=== PATIENT | female | born 1955 | race African-American/Black ===

== ENCOUNTER 2019-12-13 15:24 | Emergency (ER) | payer MEDICAID, MEDICARE ==
[~2019-12-13] VITALS: Ht 165.1 cm; Wt 68.0 kg
[~2019-12-13 15:24] MED LIST: HYDR-1348
[2019-12-13 18:16] VITALS: BP 167/92
== END 2019-12-13 17:55 | disposition home or self-care (01) ==
LOC: ER 15:24
DX: I10 Essential (primary) hypertension (principal); D64.9 Anemia, unspecified; J45.909 Unspecified asthma, uncomplicated; I25.2 Old myocardial infarction; Z86.73 Personal history of transient ischemic attack (TIA), and cerebral infarction without residual deficits; Z88.0 Allergy status to penicillin; E03.9 Hypothyroidism, unspecified
CPT/HCPCS: 99282; 99283

== ENCOUNTER 2021-07-31 14:41 | Emergency (ER) | payer MEDICARE ==
[~2021-07-31] VITALS: Ht 162.6 cm; Wt 77.0 kg
[2021-07-31 14:50] VITALS: BP 179/92
[2021-07-31] MEDS ORDERED: ACETAMINOPHEN 325MG TABLET PO ONE (15:30)
[2021-07-31] MEDS ORDERED: ACET-2708 MT (16:23)
== END 2021-07-31 17:00 | disposition home or self-care (01) ==
LOC: ER 14:41
DX: S90.01XA Contusion of right ankle, initial encounter (principal); S90.31XA Contusion of right foot, initial encounter; E11.9 Type 2 diabetes mellitus without complications; I10 Essential (primary) hypertension; E03.9 Hypothyroidism, unspecified; I25.2 Old myocardial infarction; Z86.73 Personal history of transient ischemic attack (TIA), and cerebral infarction without residual deficits; Z98.890 Other specified postprocedural states; Z88.0 Allergy status to penicillin; W01.0XXA Fall on same level from slipping, tripping and stumbling without subsequent striking against object, initial encounter; Y93.89 Activity, other specified; Y92.480 Sidewalk as the place of occurrence of the external cause
CPT/HCPCS: 73610; 73630; 99284

== ENCOUNTER 2022-09-08 01:27 | Emergency (ER) | payer MEDICARE, MEDICAID ==
[~2022-09-08] VITALS: Ht 167.6 cm; Wt 87.0 kg
[~2022-09-08 01:27] MED LIST changes: +ACET-2708 MT
[2022-09-08] MEDS ORDERED: HYDROCODONE/ACETAMINOPHEN 5/325MG TABLET PO ONE ×2 (06:00→12:15)
[2022-09-08] MEDS ORDERED: DIAZEPAM 5 MG TABLET PO ONE (06:00)
[2022-09-08] MEDS ORDERED: HYDR-4001 MT (12:21)
[2022-09-08 13:01] VITALS: BP 142/86
== END 2022-09-08 13:02 | disposition home or self-care (01) ==
LOC: ER 01:27
DX: M54.40 Lumbago with sciatica, unspecified side (principal); I10 Essential (primary) hypertension; J45.909 Unspecified asthma, uncomplicated; E11.9 Type 2 diabetes mellitus without complications; I25.2 Old myocardial infarction; E03.9 Hypothyroidism, unspecified; Z86.73 Personal history of transient ischemic attack (TIA), and cerebral infarction without residual deficits; Z98.890 Other specified postprocedural states; Z88.5 Allergy status to narcotic agent
CPT/HCPCS: 72131; 72148; 99284

== ENCOUNTER 2024-08-19 18:38 | Inpatient (IN) | payer MEDICARE, MEDICAID ==
[~2024-08-19] VITALS: Ht 167.6 cm; Wt 79.1 kg
[~2024-08-19 18:38] MED LIST changes: +ALBU18HF2 IH; +AMLO10TA80 PO; +ASPI-1497 PO; +CYAN100081 MT; -HYDR-1348; +LEVO125T8 PO; +TRAM50TA3 PO
[2024-08-19 20:17] LABS: BASOPHILS % 0.3 % (0.0-2.0); EOSINOPHILS % 3.9 % (0.0-5.0); HEMATOCRIT. 39.1 % (36.0-48.0); HEMOGLOBIN. 12.8 g/dL (12.0-16.0); LYMPHOCYTES % 25.6 % (20.0-50.0); MEAN CORPUSCULAR HEMOGLOBIN 29.2 pg (28.0-32.0); MEAN CORPUSCULAR HGB CONC 32.8 g/dL (31.0-37.0); MEAN CORPUSCULAR VOLUME 89.1 fL (81.0-99.0); MEAN PLATELET VOLUME 8.5 fl (7.4-10.4); MONOCYTES % 5.9 % (2.0-8.0); NEUTROPHILS % 64.3 % (40.0-76.0); PLATELET 205 x1000/uL (130-400); RED BLOOD CELL COUNT 4.39 mill/uL (4.2-5.4); RED CELL DISTRIBUTION WIDTH 15.9 % (11.6-14.6); WHITE BLOOD COUNT 6.9 x1000/uL (4.5-11.0)
[2024-08-19 20:24] LABS: CHLORIDE 109 mEq/L (98-107); POTASSIUM 3.9 mEq/L (3.5-5.1); SODIUM 141 mEq/L (136-145)
[2024-08-19 20:25] LABS: CARBON DIOXIDE 25 mEq/L (21-32)
[2024-08-19 20:26] LABS: CALCIUM 9.4 mg/dL (8.7-10.4)
[2024-08-19 20:28] LABS: INR 1.1; PARTIAL THROMBOPLASTIN TIME 27.6 sec (23.4-31.0); PROTHROMBIN TIME 11.3 sec (9.6-11.0)
[2024-08-19 20:30] LABS: CREATININE 0.8 mg/dL (0.6-1.0)
[2024-08-19 20:31] LABS: GLUCOSE 155 mg/dL (70-105); UREA NITROGEN BLOOD 12 mg/dL (9-23)
[2024-08-19 20:32] LABS: ALANINE AMINOTRANSFERASE 27 IU/L (10-49); ALBUMIN 4.1 g/dL (3.2-4.8); ASPARTATE AMINOTRANSFERASE 20 IU/L (<34)
[2024-08-19 20:33] LABS: BILIRUBIN TOTAL 0.5 mg/dL (0.1-1.0); PROTEIN TOTAL 7.3 g/dL (6.0-8.3)
[2024-08-19] MEDS ORDERED: NALOXONE HCL 0.4MG/ML VIAL IV PRN (22:45)
[2024-08-19] MEDS ORDERED: ACETAMINOPHEN 500MG TABLET PO PRN (22:45)
[2024-08-19] MEDS ORDERED: IPRATROPIUM/ALBUTEROL 0.5-3(2.5)MG/3ML NEB HHN PRN (22:45)
[2024-08-19] MEDS ORDERED: ONDANSETRON HCL 4MG/2ML INJ IV PRN (22:45)
[2024-08-20] MEDS ORDERED: DEXTROSE 50% WATER 50ML SYRINGE IV PRN
[2024-08-20] MEDS: TRAMADOL 50MG TABLET PO PRN (00:07)
[2024-08-20] MEDS ORDERED: GLIP5TAB22 PO (01:15)
[2024-08-20] MEDS ORDERED: PREG75CA PO (01:16)
[2024-08-20 02:07] VITALS: BP 153/90; PULSE 81; RESP 19; TEMP 36.4
[2024-08-20 04:00] VITALS: BP 147/81; PULSE 85; RESP 21; TEMP 36.3; O2SAT 98
[2024-08-20] MEDS: BLOOD SUGAR DIAGNOSTIC STRIP TEST SCH (06:17)
[2024-08-20] MEDS: INSULIN LISPRO 100 UNITS/ML SUBCUT SCH (06:18)
[2024-08-20] MEDS ORDERED: IOHEXOL-350 100 ML BOTTLE ONE (06:59)
[2024-08-20 08:00] VITALS: BP 123/78; PULSE 63; RESP 20; TEMP 36.9; O2SAT 100
[2024-08-20] MEDS: LEVOTHYROXINE SODIUM 125MCG TABLET PO SCH (10:44)
[2024-08-20] MEDS: SULFAMETHOXAZOLE/TRIMETHOPRIM 800/160MG TABLET PO SCH (10:45)
[2024-08-20] MEDS: AMLODIPINE 10MG TABLET PO SCH (10:45)
[2024-08-20] MEDS: CLOPIDOGREL 75MG TABLET PO SCH (11:00)
[2024-08-20] MEDS ORDERED: LEVOFLOXACIN 500MG TABLET PO SCH (11:00)
[2024-08-20] MEDS: ASPIRIN 81MG EC TABLET PO SCH (11:12)
[2024-08-20 12:00] VITALS: BP 138/76; PULSE 80; RESP 18; TEMP 36.6; O2SAT 99
[2024-08-20 12:10] LABS: BASOPHILS % 0.3 % (0.0-2.0); CHLORIDE 107 mEq/L (98-107); EOSINOPHILS % 3.8 % (0.0-5.0); HEMATOCRIT. 32.8 % (36.0-48.0); HEMOGLOBIN. 10.9 g/dL (12.0-16.0); LYMPHOCYTES % 24.4 % (20.0-50.0); MEAN CORPUSCULAR HEMOGLOBIN 29.6 pg (28.0-32.0); MEAN CORPUSCULAR HGB CONC 33.1 g/dL (31.0-37.0); MEAN CORPUSCULAR VOLUME 89.3 fL (81.0-99.0); MEAN PLATELET VOLUME 8.9 fl (7.4-10.4); MONOCYTES % 7.1 % (2.0-8.0); NEUTROPHILS % 64.4 % (40.0-76.0); PLATELET 186 x1000/uL (130-400); POTASSIUM 4.1 mEq/L (3.5-5.1); RED BLOOD CELL COUNT 3.67 mill/uL (4.2-5.4); SODIUM 141 mEq/L (136-145)
[2024-08-20 12:11] LABS: CALCIUM 9.5 mg/dL (8.7-10.4); CARBON DIOXIDE 27 mEq/L (21-32)
[2024-08-20 12:16] LABS: CREATININE 0.8 mg/dL (0.6-1.0); GLUCOSE 113 mg/dL (70-105); UREA NITROGEN BLOOD 17 mg/dL (9-23)
[2024-08-20 16:00] VITALS: BP 127/66; PULSE 83; RESP 18; TEMP 36.6; O2SAT 97
[2024-08-20 17:45] LABS: HEMATOCRIT 31.7 % (36.0-48.0); HEMOGLOBIN 10.4 g/dL (12.0-16.0); MEAN CORPUSCULAR HEMOGLOBIN 29.8 pg (28.0-32.0); MEAN CORPUSCULAR HGB CONC 32.9 g/dL (31.0-37.0); MEAN CORPUSCULAR VOLUME 90.6 fL (81.0-99.0); PLATELET 182 x1000/uL (130-400); RED CELL DISTRIBUTION WIDTH 15.6 % (11.6-14.6); WHITE BLOOD COUNT 6.5 x1000/uL (4.5-11.0)
[2024-08-20 20:00] VITALS: BP 141/72; PULSE 77; RESP 18; TEMP 36.6; O2SAT 94
[2024-08-21] VITALS: BP 103/76; PULSE 91; RESP 18; TEMP 36.6; O2SAT 99
[2024-08-21 04:05] VITALS: BP 108/70; PULSE 77; RESP 17; TEMP 36.4; O2SAT 99
[2024-08-21 06:30] LABS: HEMATOCRIT 31.3 % (36.0-48.0); HEMOGLOBIN 10.2 g/dL (12.0-16.0); MEAN CORPUSCULAR HEMOGLOBIN 29.3 pg (28.0-32.0); MEAN CORPUSCULAR HGB CONC 32.6 g/dL (31.0-37.0); MEAN CORPUSCULAR VOLUME 90.1 fL (81.0-99.0); PLATELET 151 x1000/uL (130-400); RED BLOOD CELL COUNT 3.47 mill/uL (4.2-5.4); RED CELL DISTRIBUTION WIDTH 15.7 % (11.6-14.6); WHITE BLOOD COUNT 5.2 x1000/uL (4.5-11.0)
[2024-08-21 08:00] VITALS: BP 127/70; PULSE 75; RESP 18; TEMP 36.6; O2SAT 100
[2024-08-21] MEDS ORDERED: CLOP-31 PO (09:22)
[2024-08-21 12:00] VITALS: BP 167/81; PULSE 73; RESP 20; TEMP 36.5; O2SAT 98
[2024-08-21 12:25] VITALS: BP 127/70; PULSE 75; TEMP 97.9; O2SAT 100
== END 2024-08-21 13:50 | disposition home or self-care (01) | DRG 920 ==
LOC: ER 18:38 → 8WST 22:12 → EDBEDREQ 22:19 → EDBEDREQTM 22:19 → ER 23:46
PROVIDERS: ADMIT Internal Medicine; ATTEND Internal Medicine
DX: L76.22 Postprocedural hemorrhage of skin and subcutaneous tissue following other procedure (principal); I69.351 Hemiplegia and hemiparesis following cerebral infarction affecting right dominant side; L97.319 Non-pressure chronic ulcer of right ankle with unspecified severity; E11.51 Type 2 diabetes mellitus with diabetic peripheral angiopathy without gangrene; E03.9 Hypothyroidism, unspecified; I10 Essential (primary) hypertension; S91.001A Unspecified open wound, right ankle, initial encounter; I70.201 Unspecified atherosclerosis of native arteries of extremities, right leg; J45.909 Unspecified asthma, uncomplicated; I25.2 Old myocardial infarction; Z79.84 Long term (current) use of oral hypoglycemic drugs; Z88.0 Allergy status to penicillin; Z88.8 Allergy status to other drugs, medicaments and biological substances; X58.XXXA Exposure to other specified factors, initial encounter; Y93.89 Activity, other specified; Y92.89 Other specified places as the place of occurrence of the external cause; Y99.8 Other external cause status
CPT/HCPCS: 36415; 72191; 76857; 80048; 80053; 82962; 85025; 85027; 86850; 86870; 86900; 99285; Q9967